=== PATIENT | female | born 1945 ===

== ENCOUNTER 2024-04-18 11:27 | Emergency (ER) | payer SELFPAY ==
[2024-04-18 11:35] VITALS: BP 145/62; PULSE 68; RESP 16; TEMP 36.6; O2SAT 100; BMI 29.8
== END 2024-04-18 12:00 | disposition home or self-care (01) ==
PROVIDERS: PCP Student in an Organized Health Care Education/Training Program
DX: Z53.21 Procedure and treatment not carried out due to patient leaving prior to being seen by health care provider (principal)
CPT/HCPCS: 99281